=== PATIENT | female | born 1995 | race African-American/Black ===

== ENCOUNTER 2021-03-09 10:15 | Emergency (ER) | payer MEDICAID ==
[~2021-03-09] VITALS: Ht 177.8 cm; Wt 100.0 kg
[2021-03-09] MEDS ORDERED: ALBUTEROL (0.083%) 2.5MG/3ML NEB HHN STA (10:56)
[2021-03-09] MEDS ORDERED: IPRATROPIUM BROMIDE (0.02%) 0.5MG/2.5ML NEB HHN STA (10:56)
[2021-03-09] MEDS ORDERED: METHYLPREDNISOLONE SOD SUCC 125 MG/2 ML VIAL IM ONE (11:00)
[2021-03-09] MEDS ORDERED: P20 MT (12:43)
[2021-03-09] MEDS ORDERED: AZIT250T12 MT (12:43)
[2021-03-09] MEDS ORDERED: AMOX-424 MT (12:43)
[2021-03-09] MEDS ORDERED: ALBU6.7H9 INH (12:43)
[2021-03-09 13:00] VITALS: BP 138/89
== END 2021-03-09 13:28 | disposition home or self-care (01) ==
LOC: ER 10:15
DX: J45.901 Unspecified asthma with (acute) exacerbation (principal); J06.9 Acute upper respiratory infection, unspecified; Z88.8 Allergy status to other drugs, medicaments and biological substances
CPT/HCPCS: 71045; 94640; 96372; 99283; J2930; Z7610

== ENCOUNTER 2021-07-13 11:38 | Emergency (ER) | payer MEDICAID ==
[~2021-07-13] VITALS: Ht 152.4 cm; Wt 125.0 kg
[~2021-07-13 11:38] MED LIST: ALBU6.7H9 INH; AMOX-424 MT; AZIT250T12 MT; P20 MT
[2021-07-13] MEDS ORDERED: LORAZEPAM 1MG TABLET PO ONE ×2 (12:30→17:45)
[2021-07-13] MEDS ORDERED: SODIUM CHLORIDE 0.9% 1,000 ML IV ONE (12:30)
[2021-07-13] MEDS ORDERED: TETANUS, DIPHTHERIA, PERTUSSIS VAC/PF 0.5ML (>10YR OLD) IM ONE (12:30)
[2021-07-13 12:44] LABS: BASOPHILS % 0.7 % (0.0-2.0); EOSINOPHILS % 0.3 % (0.0-5.0); HEMATOCRIT. 42.6 % (36.0-48.0); HEMOGLOBIN. 13.6 g/dL (12.0-16.0); LYMPHOCYTES % 22.2 % (20.0-50.0); MEAN CORPUSCULAR HEMOGLOBIN 24.9 pg (28.0-32.0); MEAN CORPUSCULAR VOLUME 77.9 fL (81.0-99.0); MEAN PLATELET VOLUME 8.5 fl (7.4-10.4); MONOCYTES % 8.1 % (2.0-8.0); NEUTROPHILS % 68.7 % (40.0-76.0); PLATELET 361 x1000/uL (130-400); RED BLOOD CELL COUNT 5.47 mill/uL (4.2-5.4); RED CELL DISTRIBUTION WIDTH 16.6 % (11.6-14.6)
[2021-07-13 12:46] LABS: CHLORIDE 107 mEq/L (98-107)
[2021-07-13 12:51] LABS: ETHANOL BLOOD < 10 mg/dL
[2021-07-13 12:55] LABS: HCG SCREEN NEGATIVE
[2021-07-13 14:43] LABS: CLARITY URINE CLOUDY (CLEAR); COLOR URINE DARK YELLOW (YELLOW); KETONES URINE 3+ (NEGATIVE); LEUKOCYTE ESTERASE URINE TRACE (NEGATIVE); NITRITE URINE NEGATIVE (NEGATIVE); OCCULT BLOOD URINE 3+ (NEGATIVE); PH URINE 5.5 (4.5-8.0); PROTEIN URINE 1+ (NEGATIVE); SPECIFIC GRAVITY URINE 1.036 (1.005-1.030)
[2021-07-13 14:59] LABS: *COCAINE SCREEN URINE NEGATIVE (NEGATIVE)
[2021-07-13 15:00] LABS: *AMPHETAMINES SCREEN URINE NEGATIVE (NEGATIVE); *BARBITURATES SCREEN URINE NEGATIVE (NEGATIVE); *BENZODIAZEPINES SCREEN URINE NEGATIVE (NEGATIVE); METHADONE URINE SCREEN NEGATIVE (NEGATIVE); OPIATES URINE SCREEN NEGATIVE (NEGATIVE); PHENCYCLIDINE URINE SCREEN NEGATIVE (NEGATIVE)
[2021-07-13 15:04] LABS: CANNABINOID URINE SCREEN PRESUMTIVE POSITIVE (NEGATIVE)
[2021-07-13] MEDS ORDERED: LIDOCAINE HCL 1% 20ML VIAL (Pyxis) INJ INFIL ONE (16:00)
[2021-07-13] MEDS ORDERED: CEFTRIAXONE SODIUM 500 MG/VIAL IM ONE (16:00)
[2021-07-13] MEDS ORDERED: OLANZAPINE 10MG TABLET PO SCH (16:00)
[2021-07-13] MEDS ORDERED: CEFTRIAXONE 1 G PREMIX 50 ML IV ONE (16:00)
[2021-07-13] MEDS ORDERED: CEFTRIAXONE SODIUM 1 G/VIAL IM ONE (16:30)
[2021-07-13] MEDS ORDERED: OLANZAPINE 5MG TABLET PO SCH (17:45)
[2021-07-14] MEDS ORDERED: LORAZEPAM 1MG TABLET PO ONE (03:30)
[2021-07-14] MEDS ORDERED: HALOPERIDOL LACTATE 5MG/ML VIAL IM ONE (05:30)
[2021-07-14] MEDS ORDERED: LORAZEPAM 2MG/ML CPJ IM PRN (05:30)
[2021-07-14] MEDS ORDERED: NITR100C PO (07:56)
[2021-07-14 11:54] VITALS: BP 120/66
== END 2021-07-14 12:06 | disposition home or self-care (01) ==
LOC: ER 11:46
DX: S61.512A Laceration without foreign body of left wrist, initial encounter (principal); R45.851 Suicidal ideations; N39.0 Urinary tract infection, site not specified; F32.9 Major depressive disorder, single episode, unspecified; R45.1 Restlessness and agitation; F20.9 Schizophrenia, unspecified; J45.909 Unspecified asthma, uncomplicated; X78.9XXA Intentional self-harm by unspecified sharp object, initial encounter; Y93.89 Activity, other specified; Y92.9 Unspecified place or not applicable; Z88.8 Allergy status to other drugs, medicaments and biological substances; Z59.00 Homelessness unspecified; Z91.14 Patient's other noncompliance with medication regimen; Z20.822 Contact with and (suspected) exposure to COVID-19
CPT/HCPCS: 36415; 80053; 80305; 80307; 80320; 80329; 81003; 84703; 85025; 90471; 90715; 93005; 96372; 99285; C9803; J0696; J1630; J2060; J3490; J7030; U0003; U0005; G0480